=== PATIENT | male | born 1975 | race Caucasian/White ===

== ENCOUNTER 2019-06-01 19:26 | Emergency (ER) | payer MEDICAID ==
[~2019-06-01] VITALS: Ht 182.9 cm; Wt 70.5 kg
[2019-06-01] MEDS ORDERED: famotidine/PF 10 mg/ml inj IV ONE (19:35)
[2019-06-01] MEDS ORDERED: OMEP20CA11 PO (19:35)
[2019-06-01] MEDS ORDERED: FAMO20TA44 PO (19:35)
[2019-06-01] MEDS ORDERED: pantoprazole 40 MG vial IV ONE (19:35)
[2019-06-01] MEDS ORDERED: LORazepam 2 mg/ml vial IV ONE (19:40)
[2019-06-01] MEDS ORDERED: fentaNYL/PF 50MCG/1 ML 2ML syringe ONE (19:58)
[2019-06-01] MEDS ORDERED: MIDAZolam 5mg/5ml vial ONE (19:59)
[2019-06-01] MEDS ORDERED: LIDOcaine Viscous 15ml cup ONE (19:59)
[2019-06-01 20:10] VITALS: BP 122/72
[2019-06-01 21:02] VITALS: BP 113/69
[2019-06-01 21:12] VITALS: BP 112/72
[2019-06-01 21:22] VITALS: BP 108/67
[2019-06-01 21:32] VITALS: BP 110/69
[2019-06-01 22:43] VITALS: BP 109/71
== END 2019-06-01 22:45 | disposition home or self-care (01) ==
LOC: ER 19:30
DX: T18.128A Food in esophagus causing other injury, initial encounter (principal); Y92.89 Other specified places as the place of occurrence of the external cause
CPT/HCPCS: 43239; 43247; 96374; 96375; 99152; 99153; 99285; C1773; C9113; J2060; J2250; J3010; J3490; J7040; A4620